=== PATIENT | female | born 1985 | race Hispanic/Latino ===

== ENCOUNTER 2018-05-31 10:03 | Emergency (ER) | payer OTHER ==
[2018-05-31 10:27] VITALS: RESP 18
[2018-05-31] MEDS ORDERED: Lidocaine 1% Inj (20ml) IJ STA (11:25)
--- NOTE | 2018-05-31 14:00 | ED PDOC ---
Arrival/HPI - General Chief Complaint: Female Genitourinary Time Seen by Provider: 05/31/18 10:04 Historian: Patient - History of Present Illness Narrative History of Present Illness (Text): 05/31/18 23:33 33 y/o female with no significant PMH presents to the ED c/o right vulvar pain and swelling x 1 day. The pain began yesterday and has progressively worsened with associated swelling, warmth, and tenderness. Pt is having difficulty walking and sitting without pain. She attempted warm water soaks without relief. Pt has never experienced these symptoms before. Denies fever, chills, vulvar drainage, vaginal discharge or bleeding, vaginal odor, back pain, nausea, vomiting, abdominal pain, urinary symptoms, neck pain, dizziness, headache, chest pain, SOB, or any other associated symptoms. Past Medical History - Provider Review Nursing Documentation Reviewed: Yes - Infectious Disease Hx of Infectious Diseases: None - Reproductive Menopause: No - Psychiatric Hx Substance Use: No - Anesthesia Hx Anesthesia: No Family/Social History - Physician Review Nursing Documentation Reviewed: Yes Family/Social History: No Known Family HX Smoking Status: Never Smoked Hx Alcohol Use: No Hx Substance Use: No Allergies/Home Meds Allergies/Adverse Reactions: Allergies No Known Allergies Allergy (Verified 05/31/18 10:26) Home Medications: Home Meds Medication Instructions Recorded Confirmed Desogestrel-Ethinyl Estradiol 1 tab PO DAILY 05/31/18 05/31/18 [Velivet 0.15 mg-0.025 mg] Review of Systems - Review of Systems Constitutional: Normal. absent: Fevers Eyes: Normal. absent: Vision Changes Respiratory: Normal. absent: SOB, Cough Cardiovascular: Normal. absent: Chest Pain, Palpitations, Syncope Gastrointestinal: Normal. absent: Abdominal Pain, Nausea, Vomiting Genitourinary Female: Other (right vulvar pain and swelling). absent: Dysuria, Frequency, Hematuria, Urine Output Changes, Vaginal Bleeding, Vaginal Discharge Musculoskeletal: Normal. absent: Back Pain, Neck Pain Skin: Abscess (right vulva) Neurological: Normal. absent: Headache, Dizziness Physical Exam Vital Signs Reviewed: Yes Vital Signs Temp Pulse Resp BP Pulse Ox 05/31/18 10:23 98.2 F 98 H 18 109/73 98 Temperature: Afebrile Blood Pressure: Normal Pulse: Regular Respiratory Rate: Normal Appearance: Positive for: Well-Appearing, Non-Toxic, Comfortable Pain Distress: None Mental Status: Positive for: Alert and Oriented X 3 - Systems Exam Head: Present: Atraumatic, Normocephalic Pupils: Present: PERRL Extroacular Muscles: Present: EOMI Conjunctiva: Present: Normal Mouth: Present: Moist Mucous Membranes Neck: Present: Normal Range of Motion. No: Meningeal Signs Respiratory/Chest: Present: Clear to Auscultation, Good Air Exchange. No: Respiratory Distress, Accessory Muscle Use Cardiovascular: Present: Regular Rate and Rhythm, Normal S1, S2, Peripheal Pulses Present Abdomen: Present: Normal Bowel Sounds. No: Tenderness, Distention, Peritoneal Signs, Rebound, Guarding Genitourinary/Pelvic Exam: Present: Other (right sided bartholin abscess with associated skin erythema, warmth, and significant tenderness). No: Vaginal Discharge, Vaginal Bleeding, Odor Back: Present: Normal Inspection. No: CVA Tenderness Upper Extremity: Present: Normal Inspection, Normal ROM, NORMAL PULSES, Neurovascularly Intact, Capillary Refill < 2s. No: Cyanosis, Edema, Temperature Abnormalties Lower Extremity: Present: Normal Inspection, NORMAL PULSES, Normal ROM, Neurovascularly Intact, Capillary Refill < 2 s. No: Edema, Temperature Abnormalties Neurological: Present: GCS=15, CN II-XII Intact, Speech Normal, Motor Func Grossly Intact, Normal Sensory Function, Gait Normal Skin: Present: Warm, Dry, Normal Color. No: Rashes Psychiatric: Present: Alert, Oriented x 3, Normal Insight, Normal Concentration, Normal Affect, Normal Mood Medical Decision Making ED Course and Treatment: Initial Plan: * Abscess Drainage * Toradol * Clindamycin * Wound culture * GC/Chlamydia * POC preg Bartholin abscess drained with the help and supervision of ED attending Dr. Gutierrez without complication under sterile procedure. Word catheter placed, wound culture obtained and sent to lab. Pt tolerated well. See procedure note. Advised gynecology followup tomorrow with her established condominium property manager. Catheter site care discussed. Discharge paperwork prepared by ED attending Dr. Gutierrez. Diagnostic testing results and plan of care discussed with patient. Strict instructions given regarding prescription use, importance of followup, and signs/symptoms to return to ER including worsening pain, intractable bleeding, catheter malfunction, fever, vomiting, syncope, or any other new/worsening symptoms. Pt verbalized understanding of discussion. Patient is A&Ox3, ambulating with steady gait, with vital signs stable for discharge. - Medication Orders Current Medication Orders: Discontinued Medications Clindamycin HCl (Cleocin) 450 mg PO STAT STA; Protocol Stop: 05/31/18 13:35 Ketorolac Tromethamine (Toradol) 60 mg IM STAT STA Stop: 05/31/18 11:28 Last Admin: 05/31/18 11:40 Dose: 60 mg MAR Pain Assessment Document 05/31/18 11:40 DM (Rec: 05/31/18 11:44 DM [place] [id number]) Pain Reassessment Is this a pain reassessment? No Presence of Pain Presence of Pain Yes Pain Scale Used Protocol: PSCALES Pain Scale Used Numeric Location Left, Right or Bilateral Right Pain Location Body Site Groin Description Description Constant Intensity of Pain at present 7 IM Administration Charges Document 05/31/18 11:40 DM (Rec: 05/31/18 11:44 DM [place] [id number]) Injection Site MAR Injection Site Right Gluteus Stan Charges for Administration # of IM Administrations 1 Lidocaine HCl (Lidocaine 1% (20ml)) 10 ml IJ STAT STA Stop: 05/31/18 11:26 Last Admin: 05/31/18 12:40 Dose: 10 ml Comments: administered by ER PA Procedures - Time-Out Type of Procedure: Abscess Drainage Site of Procedure: Right Vulva - Bartholin Abscess Correct Patient (with visual ID + MR# on ID Band): Yes Correct Procedure: Yes Correct Site Marked: Yes X-Ray Marked: NA Medication Reconciliation / Bloodwork / Allergies Checked: Yes Physician Name: Matt PENG/Tech: Simón - Incision and Drainage Site: Right Bartholin Abscess Blade Size: 11 I & D Procedure: betadine prep, sterile drapes applied, sterile dressing applied, gauze wick placed (WORD CATHETER) Progress: Area prepped with betadine prior to procedure. Using sterile technique, 1cm incision made to the mucosa just medial to right labia minora, parallel to vaginal introitus over bartholin gland. Approx 10cc of purulent material drained. Loculations broken up with hemostat. Wound culture obtained and sent to lab. Word catheter inserted into abscess cavity without difficulty. Balloon inflated with 5cc sterile water. Pressure held for 5 minutes. Hemostasis achieved. Covered with sterile gauze. Catheter site care instructions discussed. Disposition/Present on Arrival - Present on Arrival Any Indicators Present on Arrival: No History of DVT/PE: No History of Uncontrolled Diabetes: No Urinary Catheter: No History of Decub. Ulcer: No History Surgical Site Infection Following: None - Disposition Have Diagnosis and Disposition been Completed?: Yes Diagnosis: Bartholin's gland abscess Disposition: HOME/ ROUTINE Disposition Time: 13:30 Patient Plan: Discharge Condition: STABLE Discharge Instructions (ExitCare): Bartholin's Gland Cyst, How to Do a Sitz Bath Additional Instructions: return for any problems or concerns. follow up with your condominium property manager as soon as possible. Prescriptions: Cefixime [Suprax] 400 mg PO DAILY 7 Days #7 capsule Clindamycin [Cleocin] 300 mg PO QID 7 Days #28 cap Ibuprofen [Motrin Tab] 600 mg PO QID #30 tab Lactobacillus Acidophilus [Acidophilus Lactobacilli] 2 each PO BID 14 Days #28 capsule Referrals: Abdiel Weldon [Medical Doctor] - Follow up with primary Forms: [facility] (Yoruba), WORK NOTE
[2018-05-31 15:05] VITALS: BP 98/59; PULSE 90; TEMP 98.5; O2SAT 100
== END 2018-05-31 14:05 | disposition home or self-care (01) ==
LOC: ED 10:03
DX: N75.1 Abscess of Bartholin's gland (principal)
CPT/HCPCS: 56420; 81025; 87070; 87491; 87591; 96372; 99283; J1885